=== PATIENT | female | born 1995 | race Caucasian/White ===

== ENCOUNTER 2019-03-23 14:01 | Emergency (ER) | payer MEDICAID, OTHER ==
[~2019-03-23] VITALS: Ht 167.6 cm; Wt 68.0 kg
[2019-03-23 14:38] VITALS: BP 112/60
[2019-03-23] MEDS ORDERED: ACETAMINOPHEN 500 MG TAB PO ONE (15:00)
== END 2019-03-23 15:27 | disposition home or self-care (01) ==
LOC: EDBD 14:01 → ER 14:18
DX: R51 Headache (principal); M54.6 Pain in thoracic spine; M25.562 Pain in left knee; V43.52XA Car driver injured in collision with other type car in traffic accident, initial encounter; Y93.89 Activity, other specified; Y92.488 Other paved roadways as the place of occurrence of the external cause; Y99.8 Other external cause status
CPT/HCPCS: 73562; 81025